=== PATIENT | male | born 1940 | race Caucasian/White ===

== ENCOUNTER → 2020-07-04 | Outpatient (CLI) | payer MEDICARE ==
[~2020-07-04] MED LIST: ACETAMINOPHEN325 M1 PO; CARISOPRODOL350 MG PO; CIALIS2.5 MG PO; FISH OIL 1,0001 EAC9 PO; GABAPENTIN600 M1 PO; NIASPAN 500 MG500 M1 PO; NORCO 5-325 TA1 EACH PO; ZANTAC 150MG T150 M1
== END ==
LOC: M.PC 09:33
PROVIDERS: ATTEND Physical Medicine & Rehabilitation
DX: M50.30 Other cervical disc degeneration, unspecified cervical region (principal); M47.812 Spondylosis without myelopathy or radiculopathy, cervical region; Z87.39 Personal history of other diseases of the musculoskeletal system and connective tissue